=== PATIENT | male | born 1970 | race Caucasian/White ===

== ENCOUNTER 2020-04-06 06:53 | Outpatient (NON) | payer OTHER, SELFPAY ==
[2020-04-06 21:43] LABS: SARS-CoV-2 RNA PCR Negative
== END 2020-04-06 06:54 ==
PROVIDERS: PCP Registered Nurse; Visit Provider Registered Nurse
DX: Z20.828 Contact with and (suspected) exposure to other viral communicable diseases (principal); R06.02 Shortness of breath
CPT/HCPCS: 87635; C9803; U0003